=== PATIENT | female | born 1945 | race Caucasian/White ===

== ENCOUNTER → 2016-12-10 | Outpatient (CLI) | payer MEDICARE, OTHER ==
[~2016-12-10] MED LIST: HYDR-882 PO; LEVO125T5 PO; LEVO25TA4 PO; MULT-208 PO; OMEP40CA6 PO; SIMV40TA3 PO; TRAM-28 PO
== END | disposition home or self-care (01) ==
LOC: CFH 09:13
PROVIDERS: ATTEND Orthopaedic Surgery
DX: S43.401A Unspecified sprain of right shoulder joint, initial encounter (principal); M19.011 Primary osteoarthritis, right shoulder; M25.411 Effusion, right shoulder; M75.41 Impingement syndrome of right shoulder; X58.XXXA Exposure to other specified factors, initial encounter; Y93.89 Activity, other specified; Y92.89 Other specified places as the place of occurrence of the external cause; Y99.8 Other external cause status

== ENCOUNTER → 2017-03-13 | Outpatient (CLI) | payer MEDICARE, OTHER ==
[~2017-03-13] MED LIST changes: -TRAM-28 PO; +TRAM-47 PO
== END | disposition home or self-care (01) ==
LOC: CFH 09:22
PROVIDERS: ATTEND Nurse Practitioner Family
DX: Z12.31 Encounter for screening mammogram for malignant neoplasm of breast (principal); M85.80 Other specified disorders of bone density and structure, unspecified site
CPT/HCPCS: G0202

== ENCOUNTER → 2017-04-10 | Outpatient (CLI) | payer MEDICARE, OTHER | END | disposition home or self-care (01) | LOC: CFH 09:45 | PROVIDERS: ATTEND Nurse Practitioner Family | DX: Z13.820 Encounter for screening for osteoporosis (principal); M85.88 Other specified disorders of bone density and structure, other site; Z78.0 Asymptomatic menopausal state | CPT/HCPCS: 77080 ==

== ENCOUNTER → 2018-02-26 | Outpatient (CLI) | payer MEDICARE ==
[~2018-02-26] MED LIST changes: +HYDR-3653 PO; -HYDR-882 PO
== END | disposition home or self-care (01) ==
LOC: CFH 08:37
PROVIDERS: ATTEND Nurse Practitioner Family
DX: J43.2 Centrilobular emphysema (principal); K44.9 Diaphragmatic hernia without obstruction or gangrene; F17.200 Nicotine dependence, unspecified, uncomplicated
CPT/HCPCS: 71250

== ENCOUNTER → 2018-03-18 | Outpatient (CLI) | payer MEDICARE ==
[2018-03-18 10:53] LABS: ALBUMIN 4.1 g/dL (3.4-5.0); ANION GAP 6 mmol/L (5-15); CHLORIDE 109 mmol/L (98-107)
[2018-03-18 10:56] LABS: ALANINE AMINOTRANSFERASE 28 U/L (12-78); ALKALINE PHOSPHATASE 116 U/L (45-117); BILIRUBIN,TOTAL 0.3 mg/dL (0.2-1.0); CREATININE 0.69 mg/dL (0.55-1.02); TOTAL PROTEIN 8.3 g/dL (6.4-8.2)
== END | disposition home or self-care (01) ==
LOC: RAD 09:32
PROVIDERS: ATTEND Nurse Practitioner
DX: K82.4 Cholesterolosis of gallbladder (principal); N28.1 Cyst of kidney, acquired; R11.0 Nausea; R14.0 Abdominal distension (gaseous); K83.9 Disease of biliary tract, unspecified
CPT/HCPCS: 36415; 76700; 80053; 82150; 82784; 83516; 83690; 86255

== ENCOUNTER 2018-05-07 10:14 | Observation (INO) | payer MEDICARE ==
[2018-05-01 09:48] VITALS: BP 126/73
[~2018-05-07] VITALS: Ht 157.5 cm; Wt 76.9 kg
[~2018-05-07 10:14] MED LIST changes: +BIOT25005 PO; +BUPIVACAINE/PF-EPI 0.5% 1:200K ONE; +CHOL200024 PO; +CYAN100072 PO; +DEXL60CA2 PO; +L. R1CAP2 PO; +LEVO100T PO; +LISI-170 PO; +MELO15TA24 PO; +SIMV80TA7 PO; +SYSTANE I PO
[2018-05-07] MEDS ORDERED: LACTATED RINGERS 1,000 ML IV SCH ×2 (10:46→13:16)
[2018-05-07] MEDS ORDERED: ACETAMINOPHEN 500 MG TABLET PO ONE (11:00)
[2018-05-07] MEDS ORDERED: ONDANSETRON 2MG/ML, 2ML IVPush ONE (11:00)
[2018-05-07] MEDS ORDERED: GABAPENTIN 300 MG CAPSULE PO ONE (11:00)
[2018-05-07] MEDS ORDERED: FENTANYL PF 250 MCG/5ML ONE (11:53)
[2018-05-07] MEDS ORDERED: SCOPOLAMINE PATCH, 1.5MG PATCH.TD72 TD ONE ×2 (12:32)
[2018-05-07] MEDS ORDERED: ONDANSETRON 2MG/ML, 2ML IV PRN (13:00)
[2018-05-07] MEDS ORDERED: hydrALAzine 20 MG/ML, 1ML IV PRN (13:00)
[2018-05-07] MEDS ORDERED: PROMETHAZINE 25 MG/ML, 1ML IV PRN (13:00)
[2018-05-07] MEDS ORDERED: OXYcodone 5 MG/5 ML ORAL.SOL UDC PO PRN (13:00)
[2018-05-07] MEDS ORDERED: MEPERIDINE/PF 25MG/0.5ML IVPush PRN (13:00)
[2018-05-07] MEDS ORDERED: HYDROmorphone 2 MG/ML, 1ML IVPush PRN (13:00)
[2018-05-07] MEDS ORDERED: MIDAZOLAM 1 MG/ML, 2ML IV PRN (13:00)
[2018-05-07] MEDS ORDERED: FENTANYL PF 100 MCG/2ML IV PRN (13:00)
[2018-05-07] MEDS ORDERED: ALBUTEROL/IPRATROPIUM 2.5MG/0.5MG, 3 ML NPPB PRN (13:00)
[2018-05-07] MEDS ORDERED: METOPROLOL 1 MG/ML, 5ML IV PRN (13:00)
[2018-05-07] MEDS ORDERED: KETOROLAC 30 MG/1 ML ONE (13:04)
[2018-05-07] MEDS ORDERED: NEOSTIGMINE 1 MG/ML, 10ML ONE (13:04)
[2018-05-07] MEDS ORDERED: GLYCOPYRROLATE 0.2MG/1ML, 5ML ONE (13:04)
[2018-05-07] MEDS ORDERED: ROCURONIUM 10MG/ML,5ML ONE (13:04)
[2018-05-07] MEDS ORDERED: SUCCINYLCHOLINE 20 MG/ML, 10ML ONE (13:04)
[2018-05-07] MEDS ORDERED: DEXAMETHASONE 4 MG/ML, 1ML ONE (13:04)
[2018-05-07] MEDS ORDERED: PROPOFOL 10 MG/ML, 20ML ONE (13:04)
[2018-05-07] MEDS ORDERED: CEFAZOLIN 1,000 MG ONE ×4 (13:04)
[2018-05-07] MEDS ORDERED: FENTANYL PF 100 MCG/2ML ONE (13:24)
[2018-05-07] MEDS ORDERED: OXYcodone 5 MG/5 ML ORAL.SOL UDC ONE (13:24)
[2018-05-07] MEDS ORDERED: morphine SULFATE 10 MG/ML, 1ML IVPush PRN (13:30)
[2018-05-07] MEDS ORDERED: HYDROcodone/APAP 5/325 TABLET PO PRN (13:30)
[2018-05-07] MEDS ORDERED: ONDANSETRON 2MG/ML, 2ML IVPush PRN (13:30)
[2018-05-07] MEDS ORDERED: hydrALAzine 20 MG/ML, 1ML ONE (13:36)
[2018-05-07] MEDS ORDERED: METOPROLOL 1 MG/ML, 5ML ONE (13:37)
[2018-05-07] MEDS ORDERED: METOCLOPRAMIDE 5 MG/ML, 2ML IVPush PRN (18:00)
[2018-05-07 19:05] VITALS: BP 123/58
[2018-05-07 20:24] VITALS: BP 128/69
[2018-05-08 03:05] VITALS: BP 131/71
[2018-05-08 06:55] VITALS: BP 123/66
[2018-05-08 09:53] VITALS: BP 146/69
[2018-05-08] MEDS ORDERED: HYDR-3240 PO (10:03)
[2018-05-08] MEDS ORDERED: LACTATED RINGERS 1,000 ML IV SCH (13:16)
== END 2018-05-08 10:15 | disposition home or self-care (01) ==
LOC: OUT 10:14 → ORIP 13:16 → 4NOR 18:26 → DCLOUNGE 05-08 10:07
PROVIDERS: ADMIT Thoracic Surgery (Cardiothoracic Vascular Surgery); ATTEND Thoracic Surgery (Cardiothoracic Vascular Surgery)
DX: K82.4 Cholesterolosis of gallbladder (principal); R11.2 Nausea with vomiting, unspecified; K44.9 Diaphragmatic hernia without obstruction or gangrene; K21.9 Gastro-esophageal reflux disease without esophagitis; E03.9 Hypothyroidism, unspecified; E78.00 Pure hypercholesterolemia, unspecified
CPT/HCPCS: 47562; 88304; 96360; 96361; G0378; J0330; J0690; J1100; J1885; J2405; J2704; J2710; J3010; J3490; J7120

== ENCOUNTER → 2018-06-18 | Outpatient (CLI) | payer MEDICARE ==
[~2018-06-18] MED LIST changes: -BUPIVACAINE/PF-EPI 0.5% 1:200K ONE; +HYDR-3240 PO; +SIMV80TA18 PO; -SIMV80TA7 PO
== END | disposition home or self-care (01) ==
LOC: CFH 15:25
PROVIDERS: ATTEND Nurse Practitioner
DX: N28.1 Cyst of kidney, acquired (principal)
CPT/HCPCS: 76770

== ENCOUNTER 2019-05-11 12:01 | Outpatient (CLI) | payer MEDICARE ==
[~2019-05-11 12:01] MED LIST changes: +OMEP40CA42 PO; -OMEP40CA6 PO
== END 2019-05-11 23:59 | disposition home or self-care (01) ==
LOC: CFH 12:01
PROVIDERS: ATTEND Nurse Practitioner Family
DX: Z13.820 Encounter for screening for osteoporosis (principal); M85.88 Other specified disorders of bone density and structure, other site; N95.9 Unspecified menopausal and perimenopausal disorder
CPT/HCPCS: 77080

== ENCOUNTER 2019-09-22 09:13 | Outpatient (CLI) | payer MEDICARE ==
[~2019-09-22 09:13] MED LIST changes: +SIMV40TA20 PO; -SIMV40TA3 PO
== END 2019-09-22 23:59 | disposition home or self-care (01) ==
LOC: CFH 09:13
PROVIDERS: ATTEND Nurse Practitioner
DX: Z12.2 Encounter for screening for malignant neoplasm of respiratory organs (principal); J43.2 Centrilobular emphysema; Z87.891 Personal history of nicotine dependence
CPT/HCPCS: G0297

== ENCOUNTER → 2020-08-17 | Outpatient (CLI) | payer MEDICARE, OTHER ==
[~2020-08-17] MED LIST changes: +AMINOPHYLLINE 25 MG/ML, 10ML ONE; +ASCO500T9 PO; +DEXA4TAB PO; +HYDR-2214 PO; -HYDR-3240 PO; +LOPE2CAP PO; +REGADENOSON 0.4 MG/5 ML SYRINGE ONE; +ZINC220C7 PO
== END | disposition home or self-care (01) ==
LOC: CFH 08:11
PROVIDERS: ATTEND Internal Medicine Cardiovascular Disease
DX: R07.89 Other chest pain (principal); R06.02 Shortness of breath; R11.0 Nausea
CPT/HCPCS: 78452; 93017; A9502; J0280; J2785